=== PATIENT | female | born 1950 | race Caucasian/White ===

== ENCOUNTER 2017-08-17 13:00 | Inpatient (IN) | payer OTHER ==
[~2017-08-17] VITALS: Ht 172.7 cm; Wt 82.6 kg
[~2017-08-17 13:00] MED LIST: GABA-533 PO; VITA400C70 PO
[2017-08-17 14:41] VITALS: BP 140/63
[2017-08-17 15:03] LABS: BASOPHILS % (AUTO) 0.7 % (0.0-5.0); EOSINOPHILS % (AUTO) 2.6 % (0.0-8.0); HEMATOCRIT 43.2 % (36-48); LYMPHOCYTES % (AUTO) 20.8 % (21.0-51.0); MEAN CORPUSCULAR HEMOGLOBIN 34.1 pg (27.0-33.0); MEAN CORPUSCULAR HGB CONC 34.2 g/dL (32.0-36.0); MEAN CORPUSCULAR VOLUME 99.7 fL (79-99); NEUTROPHILS % (AUTO) 68.9 % (40.0-77.0); PLATELET COUNT (AUTO) 247 K/uL (130-400); RED BLOOD CELL COUNT(AUTO) 4.33 MIL/uL (4.00-5.50); RED CELL DISTRIBUTION WIDTH 13.6 % (11.0-15.5); WHITE BLOOD COUNT (AUTO) 12.9 K/uL (4.8-10.8)
[2017-08-17] MEDS ORDERED: VENL150C2 PO (15:10)
[2017-08-17] MEDS ORDERED: FEXO1TAB5 PO (15:10)
[2017-08-17] MEDS ORDERED: BUPR-93 PO (15:10)
[2017-08-17] MEDS ORDERED: ELTR25TA PO (15:10)
[2017-08-17] MEDS ORDERED: INOS500T PO ×2 (15:10)
[2017-08-17] MEDS ORDERED: METH500T PO (15:10)
[2017-08-17] MEDS ORDERED: TURM500C9 PO (15:10)
[2017-08-17] MEDS ORDERED: PRED5TAB PO (15:10)
[2017-08-17 15:12] LABS: INR 1.02 (0.85-1.15); PARTIAL THROMBOPLASTIN TIME 24.2 SEC (26.3-35.5); PROTHROMBIN TIME 10.7 SEC (9.6-11.6)
[2017-08-17 15:14] LABS: ALBUMIN 3.6 g/dL (3.5-5.0); BILIRUBIN,TOTAL 0.4 mg/dL (0.2-1.0); CREATININE 0.9 mg/dL (0.5-1.5); POTASSIUM 3.8 mmol/L (3.5-5.1); TOTAL PROTEIN, SERUM 7.6 g/dL (6.0-8.3)
[2017-08-17 15:21] LABS: HEMOGLOBIN A1C 10.2 % (4.0-6.0)
[2017-08-18] VITALS (34 sets, daily range): BP systolic 94–164; BP diastolic 41–100
[2017-08-18] MEDS: CEFUROXIME SODIUM 1.5 GM VIAL IVP SCH ×2 (06:00→11:20)
[2017-08-18] MEDS ORDERED: SODIUM CHLORIDE 0.9% 1000ML 1,000 ML IV ONE (09:08)
[2017-08-18] MEDS ORDERED: THROMBIN-JMI 5000 UNIT/VIAL TP ONE (10:52)
[2017-08-18] MEDS ORDERED: MIDAZOLAM HCL 1 MG/ML 2ML VIAL ONE ×2 (11:07→11:11)
[2017-08-18] MEDS ORDERED: OCTYL 2-CYANOACRYLATE 1 EACH TP ONE (11:10)
[2017-08-18] MEDS ORDERED: DEXAMETHASONE SOD PHOSPHATE 10MG/ML 1ML VIAL ONE (11:10)
[2017-08-18] MEDS ORDERED: LIDOCAINE PF 2% 5ML ABBOJECT ONE (11:10)
[2017-08-18] MEDS ORDERED: ONDANSETRON HCL 4 MG/2 ML VIAL ONE ×2 (11:10→16:17)
[2017-08-18] MEDS ORDERED: BACITRACIN 50,000 UNIT VIAL ONE (11:10)
[2017-08-18] MEDS ORDERED: GLYCOPYRROLATE 0.2 MG/ML 5 ML VIAL ONE (11:10)
[2017-08-18] MEDS ORDERED: PROPOFOL 10 MG/ML 20ML VIAL IV ONE (11:10)
[2017-08-18] MEDS ORDERED: FENTANYL CITRATE PF 50 MCG/1 ML 2ML VIAL ONE (11:11)
[2017-08-18] MEDS ORDERED: FENTANYL CITRATE PF 50 MCG/1 ML 5ML AMP IV ONE (11:33)
[2017-08-18] MEDS ORDERED: BUPIVACAINE/PF 0.5% 30ML VIAL ONE (13:45)
[2017-08-18] MEDS ORDERED: LABETALOL HCL 5 MG/ML 20ML VIAL IV ONE (14:50)
[2017-08-18] MEDS ORDERED: MORPHINE SULFATE 2 MG/ML 1ML SYG ONE (16:16)
[2017-08-18] MEDS ORDERED: CEFAZOLIN 2GM / 50 ML 50 ML IV SCH (16:30)
[2017-08-18] MEDS ORDERED: MAGNESIUM HYDROXIDE 30 ML/UDCUP PO PRN (16:30)
[2017-08-18] MEDS ORDERED: MORPHINE SULFATE 2 MG/ML 1ML SYG IVP PRN ×2 (16:30)
[2017-08-18] MEDS ORDERED: ACETAMINOPHEN 325 MG TAB PO PRN (16:30)
[2017-08-18] MEDS ORDERED: SODIUM CHLORIDE 0.9% 1000ML 1,000 ML IV SCH (16:30)
[2017-08-18] MEDS ORDERED: TRAMADOL HCL 50 MG TABLET PO PRN (16:30)
[2017-08-18 16:42] LABS: BASOPHILS % (AUTO) 0.3 % (0.0-5.0); EOSINOPHILS % (AUTO) 0.6 % (0.0-8.0); HEMATOCRIT 41.2 % (36-48); LYMPHOCYTES % (AUTO) 6.6 % (21.0-51.0); MEAN CORPUSCULAR HEMOGLOBIN 34.1 pg (27.0-33.0); MEAN CORPUSCULAR HGB CONC 34.4 g/dL (32.0-36.0); MONOCYTES % (AUTO) 4.5 % (3.0-13.0); PLATELET COUNT (AUTO) 256 K/uL (130-400); RED BLOOD CELL COUNT(AUTO) 4.16 MIL/uL (4.00-5.50); RED CELL DISTRIBUTION WIDTH 13.6 % (11.0-15.5); WHITE BLOOD COUNT (AUTO) 24.5 K/uL (4.8-10.8)
[2017-08-18] MEDS: CEFAZOLIN SODIUM 1 GM VIAL IVP SCH ×2 (16:43→23:36)
[2017-08-18 16:55] LABS: CREATININE 0.7 mg/dL (0.5-1.5); POTASSIUM 3.8 mmol/L (3.5-5.1)
[2017-08-18 16:59] LABS: MAGNESIUM 1.4 mg/dL (1.80-2.40); PHOSPHORUS 4.3 mg/dL (2.5-4.9)
[2017-08-18] MEDS: TRAMADOL HCL 50 MG TABLET PO PRN (18:41)
[2017-08-18] MEDS ORDERED: POTASSIUM CHLORIDE 10% ELIXIR 20 MEQ/15 ML UDCUP PO PRN (18:45)
[2017-08-18] MEDS ORDERED: MAGNESIUM 2GM PREMIX 50ML 50 ML IV PRN (18:45)
[2017-08-18] MEDS ORDERED: LIDOCAINE HCL-MPF 1% 2ML VIAL IVP PRN (18:45)
[2017-08-18] MEDS ORDERED: POTASSIUM CHLORIDE 20MEQ/100ML 100 ML IV PRN (18:45)
[2017-08-18] MEDS ORDERED: MAGNESIUM 2GM PREMIX 50ML 50 ML IV ONE (18:47)
[2017-08-18] MEDS: MORPHINE SULFATE 2 MG/ML 1ML SYG IVP PRN (20:20)
[2017-08-18] MEDS: PROMACTA PO SCH (21:00)
[2017-08-18] MEDS: BUPROPION HCL 150 MG TABLET.SA PO SCH (21:00)
[2017-08-18] MEDS: LORATADINE/PSEUDOEPHED 5/120 MG 1 EACH TAB.SR.12H PO SCH (21:00)
[2017-08-18] MEDS: GABAPENTIN 100 MG CAPSULE PO SCH (21:01)
[2017-08-18] MEDS: POTASSIUM CHLORIDE 20 MEQ ERTAB PO PRN (21:01)
[2017-08-18] MEDS ORDERED: MORPHINE SULFATE 4 MG/1ML SYG IM PRN (23:15)
[2017-08-18] MEDS: ONDANSETRON HCL 4 MG/2 ML VIAL IVP PRN (23:31)
[2017-08-18] MEDS ORDERED: DEXTROSE 50%-WATER 50 ML DISP.SYRIN IV PRN (23:45)
[2017-08-18] MEDS ORDERED: GLUCAGON 1MG KIT 1 MG ML IM PRN (23:45)
[2017-08-19] VITALS (22 sets, daily range): BP systolic 93–136; BP diastolic 35–81
[2017-08-19] MEDS: MORPHINE SULFATE 4 MG/1ML SYG IV PRN ×2 (00:09→03:43)
[2017-08-19] MEDS ORDERED: MORPHINE SULFATE 4 MG/1ML SYG IV PRN (03:15)
[2017-08-19 05:48] LABS: BASOPHILS % (AUTO) 0.6 % (0.0-5.0); EOSINOPHILS % (AUTO) 0.3 % (0.0-8.0); HEMATOCRIT 44.9 % (36-48); LYMPHOCYTES % (AUTO) 6.7 % (21.0-51.0); MEAN CORPUSCULAR HEMOGLOBIN 33.7 pg (27.0-33.0); MEAN CORPUSCULAR VOLUME 98.9 fL (79-99); MONOCYTES % (AUTO) 5.3 % (3.0-13.0); NEUTROPHILS % (AUTO) 87.1 % (40.0-77.0); PLATELET COUNT (AUTO) 313 K/uL (130-400); RED BLOOD CELL COUNT(AUTO) 4.54 MIL/uL (4.00-5.50); RED CELL DISTRIBUTION WIDTH 13.7 % (11.0-15.5); WHITE BLOOD COUNT (AUTO) 23.9 K/uL (4.8-10.8)
[2017-08-19 06:07] LABS: CREATININE 0.8 mg/dL (0.5-1.5); MAGNESIUM 2.2 mg/dL (1.80-2.40); PHOSPHORUS 4.1 mg/dL (2.5-4.9); POTASSIUM 4.9 mmol/L (3.5-5.1)
[2017-08-19] MEDS: MORPHINE SULFATE 2 MG/ML 1ML SYG IVP PRN (06:19)
[2017-08-19] MEDS: INSULIN HUMULIN R 100 UNIT/ML 3ML SQ SCH ×4 (06:48→21:03)
[2017-08-19] MEDS: ONDANSETRON HCL 4 MG/2 ML VIAL IVP PRN (07:43)
[2017-08-19] MEDS ORDERED: KETOROLAC TROMETHAMINE 15MG/ML ONE (07:58)
[2017-08-19] MEDS: KETOROLAC TROMETHAMINE 15MG/ML IV SCH ×3 (08:00→20:37)
[2017-08-19] MEDS: VENLAFAXINE HCL XR 37.5 MG CAP PO SCH (08:48)
[2017-08-19] MEDS: LORATADINE/PSEUDOEPHED 5/120 MG 1 EACH TAB.SR.12H PO SCH ×2 (08:49→20:36)
[2017-08-19] MEDS: PREDNISONE 5 MG TABLET PO SCH (08:49)
[2017-08-19] MEDS: GABAPENTIN 100 MG CAPSULE PO SCH ×2 (08:49→20:37)
[2017-08-19] MEDS: BUPROPION HCL 150 MG TABLET.SA PO SCH ×2 (08:49→18:47)
[2017-08-19] MEDS: PANTOPRAZOLE 40 MG/VIAL IVP SCH (09:00)
[2017-08-19] MEDS: PROMACTA PO SCH (18:52)
[2017-08-20] VITALS (24 sets, daily range): BP systolic 98–142; BP diastolic 41–69
[2017-08-20] MEDS: KETOROLAC TROMETHAMINE 15MG/ML IV SCH ×4 (02:03→19:34)
[2017-08-20 04:15] LABS: HEMATOCRIT 40.1 % (36-48); MEAN CORPUSCULAR HEMOGLOBIN 34.1 pg (27.0-33.0); MEAN CORPUSCULAR HGB CONC 34.3 g/dL (32.0-36.0); MEAN CORPUSCULAR VOLUME 99.3 fL (79-99); PLATELET COUNT (AUTO) 260 K/uL (130-400); RED BLOOD CELL COUNT(AUTO) 4.04 MIL/uL (4.00-5.50); RED CELL DISTRIBUTION WIDTH 13.7 % (11.0-15.5); WHITE BLOOD COUNT (AUTO) 18.3 K/uL (4.8-10.8)
[2017-08-20 04:35] LABS: CREATININE 0.7 mg/dL (0.5-1.5); POTASSIUM 3.9 mmol/L (3.5-5.1)
[2017-08-20] MEDS: INSULIN HUMULIN R 100 UNIT/ML 3ML SQ SCH ×4 (06:36→21:38)
[2017-08-20] MEDS: LORATADINE/PSEUDOEPHED 5/120 MG 1 EACH TAB.SR.12H PO SCH ×2 (07:36→21:10)
[2017-08-20] MEDS: BUPROPION HCL 150 MG TABLET.SA PO SCH ×2 (07:36→21:10)
[2017-08-20] MEDS: PANTOPRAZOLE 40 MG/VIAL IVP SCH (07:36)
[2017-08-20] MEDS: PREDNISONE 5 MG TABLET PO SCH (07:37)
[2017-08-20] MEDS: VENLAFAXINE HCL XR 37.5 MG CAP PO SCH (08:11)
[2017-08-20] MEDS: ONDANSETRON HCL 4 MG/2 ML VIAL IVP PRN (08:26)
[2017-08-20] MEDS: PANTOPRAZOLE SODIUM 40 MG TABLET.DR PO SCH (08:31)
[2017-08-20] MEDS: GABAPENTIN 300 MG CAPSULE PO SCH ×3 (08:34→21:11)
[2017-08-20] MEDS: HYDROCODONE/ACETAMINOPHEN 7.5/325 MG TAB PO PRN ×2 (09:23→22:43)
[2017-08-20] MEDS: FUROSEMIDE 20 MG TABLET PO SCH (16:49)
[2017-08-20] MEDS: PROMACTA PO SCH (17:45)
[2017-08-20] MEDS: IPRATROPIUM/ALBUTEROL SULFATE 3 ML SOLUTION IH SCH ×2 (17:54→23:21)
[2017-08-20] MEDS: DOXYCYCLINE HYCLATE 100 MG TABLET PO SCH (21:10)
[2017-08-21] VITALS (12 sets, daily range): BP systolic 84–131; BP diastolic 47–68
[2017-08-21] MEDS: KETOROLAC TROMETHAMINE 15MG/ML IV SCH ×3 (02:22→13:39)
[2017-08-21] MEDS: FUROSEMIDE 20 MG TABLET PO SCH ×2 (04:26→16:31)
[2017-08-21] MEDS: INSULIN HUMULIN R 100 UNIT/ML 3ML SQ SCH ×4 (06:16→21:00)
[2017-08-21] MEDS: PANTOPRAZOLE SODIUM 40 MG TABLET.DR PO SCH (06:16)
[2017-08-21] MEDS: IPRATROPIUM/ALBUTEROL SULFATE 3 ML SOLUTION IH SCH ×4 (06:16→23:23)
[2017-08-21 06:27] LABS: BASOPHILS % (AUTO) 1.3 % (0.0-5.0); EOSINOPHILS % (AUTO) 1.5 % (0.0-8.0); HEMATOCRIT 36.7 % (36-48); LYMPHOCYTES % (AUTO) 12.2 % (21.0-51.0); MEAN CORPUSCULAR HEMOGLOBIN 33.6 pg (27.0-33.0); MEAN CORPUSCULAR HGB CONC 33.8 g/dL (32.0-36.0); MEAN CORPUSCULAR VOLUME 99.4 fL (79-99); MONOCYTES % (AUTO) 6.4 % (3.0-13.0); NEUTROPHILS % (AUTO) 78.6 % (40.0-77.0); PLATELET COUNT (AUTO) 219 K/uL (130-400); RED CELL DISTRIBUTION WIDTH 13.9 % (11.0-15.5)
[2017-08-21 06:47] LABS: CREATININE 0.8 mg/dL (0.5-1.5); MAGNESIUM 1.7 mg/dL (1.80-2.40); PHOSPHORUS 2.9 mg/dL (2.5-4.9); POTASSIUM 3.7 mmol/L (3.5-5.1)
[2017-08-21] MEDS: PREDNISONE 5 MG TABLET PO SCH (07:33)
[2017-08-21] MEDS: BUPROPION HCL 150 MG TABLET.SA PO SCH ×2 (07:33→20:39)
[2017-08-21] MEDS: LORATADINE/PSEUDOEPHED 5/120 MG 1 EACH TAB.SR.12H PO SCH (07:33)
[2017-08-21] MEDS: GABAPENTIN 300 MG CAPSULE PO SCH ×3 (07:33→20:39)
[2017-08-21] MEDS: DOXYCYCLINE HYCLATE 100 MG TABLET PO SCH ×2 (07:38→20:39)
[2017-08-21] MEDS: VENLAFAXINE HCL XR 37.5 MG CAP PO SCH (07:51)
[2017-08-21] MEDS: HYDROCODONE/ACETAMINOPHEN 7.5/325 MG TAB PO PRN (13:43)
[2017-08-21] MEDS: POTASSIUM CHLORIDE 20 MEQ ERTAB PO PRN (16:33)
[2017-08-21] MEDS: PROMACTA PO SCH (16:35)
[2017-08-22] MEDS: KETOROLAC TROMETHAMINE 15MG/ML IV SCH ×5 (02:26→20:19)
[2017-08-22] MEDS: FUROSEMIDE 20 MG TABLET PO SCH ×2 (02:40→17:32)
[2017-08-22 03:05] VITALS: BP 110/40
[2017-08-22 04:09] LABS: BASOPHILS % (AUTO) 0.5 % (0.0-5.0); EOSINOPHILS % (AUTO) 2.2 % (0.0-8.0); HEMATOCRIT 35.5 % (36-48); LYMPHOCYTES % (AUTO) 11.8 % (21.0-51.0); MEAN CORPUSCULAR HEMOGLOBIN 34.6 pg (27.0-33.0); MEAN CORPUSCULAR HGB CONC 34.9 g/dL (32.0-36.0); MEAN CORPUSCULAR VOLUME 99.1 fL (79-99); MONOCYTES % (AUTO) 7.3 % (3.0-13.0); NEUTROPHILS % (AUTO) 78.2 % (40.0-77.0); PLATELET COUNT (AUTO) 229 K/uL (130-400); RED BLOOD CELL COUNT(AUTO) 3.58 MIL/uL (4.00-5.50); RED CELL DISTRIBUTION WIDTH 13.5 % (11.0-15.5); WHITE BLOOD COUNT (AUTO) 12.8 K/uL (4.8-10.8)
[2017-08-22 04:18] LABS: CREATININE 0.8 mg/dL (0.5-1.5); POTASSIUM 4.1 mmol/L (3.5-5.1)
[2017-08-22] MEDS: PANTOPRAZOLE SODIUM 40 MG TABLET.DR PO SCH ×2 (05:44→09:00)
[2017-08-22] MEDS: LORATADINE/PSEUDOEPHED 5/120 MG 1 EACH TAB.SR.12H PO SCH ×3 (05:56→22:06)
[2017-08-22] MEDS: INSULIN HUMULIN R 100 UNIT/ML 3ML SQ SCH ×4 (06:04→22:12)
[2017-08-22] MEDS: IPRATROPIUM/ALBUTEROL SULFATE 3 ML SOLUTION IH SCH ×4 (06:33→23:21)
[2017-08-22 07:59] VITALS: BP 113/61
[2017-08-22] MEDS: BUPROPION HCL 150 MG TABLET.SA PO SCH ×2 (08:59→22:06)
[2017-08-22] MEDS: PREDNISONE 5 MG TABLET PO SCH (08:59)
[2017-08-22] MEDS: DOXYCYCLINE HYCLATE 100 MG TABLET PO SCH ×2 (09:00→22:06)
[2017-08-22] MEDS: VENLAFAXINE HCL XR 37.5 MG CAP PO SCH (09:00)
[2017-08-22] MEDS: GABAPENTIN 300 MG CAPSULE PO SCH ×3 (09:01→22:06)
[2017-08-22 11:46] VITALS: BP 109/54
[2017-08-22 17:19] VITALS: BP 125/64
[2017-08-22 19:16] VITALS: BP 109/56
[2017-08-22] MEDS: PROMACTA PO SCH (22:06)
[2017-08-22 23:30] VITALS: BP 116/61
[2017-08-23] MEDS: KETOROLAC TROMETHAMINE 15MG/ML IV SCH ×4 (02:21→21:38)
[2017-08-23 04:18] LABS: HEMATOCRIT 34.5 % (36-48); MEAN CORPUSCULAR HEMOGLOBIN 34.1 pg (27.0-33.0); MEAN CORPUSCULAR VOLUME 97.5 fL (79-99); PLATELET COUNT (AUTO) 256 K/uL (130-400); RED BLOOD CELL COUNT(AUTO) 3.54 MIL/uL (4.00-5.50); RED CELL DISTRIBUTION WIDTH 13.1 % (11.0-15.5); WHITE BLOOD COUNT (AUTO) 11.7 K/uL (4.8-10.8)
[2017-08-23 04:20] VITALS: BP 107/54
[2017-08-23] MEDS: FUROSEMIDE 20 MG TABLET PO SCH ×2 (04:27→16:32)
[2017-08-23 04:49] LABS: CREATININE 0.8 mg/dL (0.5-1.5); POTASSIUM 3.9 mmol/L (3.5-5.1)
[2017-08-23] MEDS: IPRATROPIUM/ALBUTEROL SULFATE 3 ML SOLUTION IH SCH ×4 (06:08→23:28)
[2017-08-23] MEDS: INSULIN HUMULIN R 100 UNIT/ML 3ML SQ SCH ×4 (06:28→21:35)
[2017-08-23 07:20] VITALS: BP 116/56
[2017-08-23] MEDS: VENLAFAXINE HCL XR 37.5 MG CAP PO SCH (09:13)
[2017-08-23] MEDS: DOXYCYCLINE HYCLATE 100 MG TABLET PO SCH ×2 (09:13→21:31)
[2017-08-23] MEDS: PREDNISONE 5 MG TABLET PO SCH (09:13)
[2017-08-23] MEDS: BUPROPION HCL 150 MG TABLET.SA PO SCH ×2 (09:13→21:31)
[2017-08-23] MEDS: LORATADINE/PSEUDOEPHED 5/120 MG 1 EACH TAB.SR.12H PO SCH ×2 (09:13→21:31)
[2017-08-23] MEDS: GABAPENTIN 300 MG CAPSULE PO SCH ×3 (09:13→21:31)
[2017-08-23 11:40] VITALS: BP 164/61
[2017-08-23 15:45] VITALS: BP 105/50
[2017-08-23] MEDS ORDERED: HYDROMORPHONE 1 MG/1 ML AMP IVP PRN (16:45)
[2017-08-23 20:00] VITALS: BP 115/56
[2017-08-23] MEDS: PROMACTA PO SCH (21:00)
[2017-08-23] MEDS: BACLOFEN 10 MG TABLET PO SCH (21:31)
[2017-08-24 00:26] VITALS: BP 122/56
[2017-08-24 03:55] LABS: HEMATOCRIT 37.8 % (36-48); MEAN CORPUSCULAR HEMOGLOBIN 34.3 pg (27.0-33.0); MEAN CORPUSCULAR HGB CONC 34.8 g/dL (32.0-36.0); MEAN CORPUSCULAR VOLUME 98.5 fL (79-99); PLATELET COUNT (AUTO) 344 K/uL (130-400); RED BLOOD CELL COUNT(AUTO) 3.84 MIL/uL (4.00-5.50); RED CELL DISTRIBUTION WIDTH 13.6 % (11.0-15.5); WHITE BLOOD COUNT (AUTO) 12.7 K/uL (4.8-10.8)
[2017-08-24 03:59] LABS: CREATININE 0.8 mg/dL (0.5-1.5); MAGNESIUM 1.5 mg/dL (1.80-2.40)
[2017-08-24 04:00] VITALS: BP 119/62
[2017-08-24 04:02] LABS: INR 1.04 (0.85-1.15); PARTIAL THROMBOPLASTIN TIME 25.7 SEC (26.3-35.5); PROTHROMBIN TIME 10.9 SEC (9.6-11.6)
[2017-08-24] MEDS: IPRATROPIUM/ALBUTEROL SULFATE 3 ML SOLUTION IH SCH ×7 (05:59→23:32)
[2017-08-24] MEDS: PANTOPRAZOLE SODIUM 40 MG TABLET.DR PO SCH (06:47)
[2017-08-24] MEDS: FUROSEMIDE 20 MG TABLET PO SCH ×2 (06:47→17:06)
[2017-08-24] MEDS: INSULIN HUMULIN R 100 UNIT/ML 3ML SQ SCH ×4 (06:50→20:55)
[2017-08-24] MEDS: KETOROLAC TROMETHAMINE 15MG/ML IV SCH (06:57)
[2017-08-24 08:00] VITALS: BP 113/51
[2017-08-24] MEDS: BACLOFEN 10 MG TABLET PO SCH ×3 (09:15→20:51)
[2017-08-24] MEDS: DOXYCYCLINE HYCLATE 100 MG TABLET PO SCH ×2 (09:15→20:51)
[2017-08-24] MEDS: LORATADINE/PSEUDOEPHED 5/120 MG 1 EACH TAB.SR.12H PO SCH ×2 (09:15→20:51)
[2017-08-24] MEDS: VENLAFAXINE HCL XR 37.5 MG CAP PO SCH (09:15)
[2017-08-24] MEDS: GABAPENTIN 300 MG CAPSULE PO SCH ×3 (09:15→20:51)
[2017-08-24] MEDS: PREDNISONE 5 MG TABLET PO SCH (09:16)
[2017-08-24] MEDS: BUPROPION HCL 150 MG TABLET.SA PO SCH ×2 (09:16→20:51)
[2017-08-24] MEDS: FLUCONAZOLE 100 MG TAB PO SCH (09:16)
[2017-08-24 12:00] VITALS: BP 105/52
[2017-08-24] MEDS: ACETAMINOPHEN-CODEINE 300/30MG TAB PO PRN (14:39)
[2017-08-24 16:00] VITALS: BP 104/49
[2017-08-24 19:43] VITALS: BP 120/57
[2017-08-24] MEDS: GUAIFENESIN 600 MG TABLET.ER PO SCH (20:51)
[2017-08-24] MEDS: PROMACTA PO SCH (20:56)
[2017-08-25] VITALS: BP 111/66
[2017-08-25 04:00] VITALS: BP 115/53
[2017-08-25 04:46] LABS: HEMATOCRIT 36.5 % (36-48); MEAN CORPUSCULAR HEMOGLOBIN 33.6 pg (27.0-33.0); MEAN CORPUSCULAR HGB CONC 34.2 g/dL (32.0-36.0); MEAN CORPUSCULAR VOLUME 98.2 fL (79-99); PLATELET COUNT (AUTO) 336 K/uL (130-400); RED BLOOD CELL COUNT(AUTO) 3.71 MIL/uL (4.00-5.50); RED CELL DISTRIBUTION WIDTH 13.2 % (11.0-15.5); WHITE BLOOD COUNT (AUTO) 12.8 K/uL (4.8-10.8)
[2017-08-25 05:04] LABS: CREATININE 0.7 mg/dL (0.5-1.5); MAGNESIUM 1.7 mg/dL (1.80-2.40); PHOSPHORUS 3.7 mg/dL (2.5-4.9); POTASSIUM 3.6 mmol/L (3.5-5.1)
[2017-08-25] MEDS: PANTOPRAZOLE SODIUM 40 MG TABLET.DR PO SCH (05:53)
[2017-08-25] MEDS: FUROSEMIDE 20 MG TABLET PO SCH ×2 (05:54→16:20)
[2017-08-25] MEDS: POTASSIUM CHLORIDE 20 MEQ ERTAB PO PRN (05:56)
[2017-08-25] MEDS: INSULIN HUMULIN R 100 UNIT/ML 3ML SQ SCH ×3 (05:57→16:58)
[2017-08-25] MEDS: IPRATROPIUM/ALBUTEROL SULFATE 3 ML SOLUTION IH SCH ×2 (06:10→11:19)
[2017-08-25 07:22] VITALS: BP 113/56
[2017-08-25] MEDS: BUPROPION HCL 150 MG TABLET.SA PO SCH (07:28)
[2017-08-25] MEDS: GUAIFENESIN 600 MG TABLET.ER PO SCH (07:28)
[2017-08-25] MEDS: DOXYCYCLINE HYCLATE 100 MG TABLET PO SCH (07:28)
[2017-08-25] MEDS: GABAPENTIN 300 MG CAPSULE PO SCH ×2 (07:28→13:10)
[2017-08-25] MEDS: FLUCONAZOLE 100 MG TAB PO SCH (07:28)
[2017-08-25] MEDS: BACLOFEN 10 MG TABLET PO SCH ×2 (07:28→13:09)
[2017-08-25] MEDS: TRAMADOL HCL 50 MG TABLET PO PRN (07:29)
[2017-08-25] MEDS ORDERED: ENOXAPARIN SODIUM 30 MG/0.3 ML SQ SCH (09:00)
[2017-08-25] MEDS: LORATADINE/PSEUDOEPHED 5/120 MG 1 EACH TAB.SR.12H PO SCH (09:35)
[2017-08-25] MEDS: VENLAFAXINE HCL XR 37.5 MG CAP PO SCH (09:36)
[2017-08-25] MEDS: ACETAMINOPHEN-CODEINE 300/30MG TAB PO PRN (09:39)
[2017-08-25 10:55] VITALS: BP 103/57
[2017-08-25] MEDS ORDERED: MAGNESIUM 2GM PREMIX 50ML 50 ML IV PRN (12:45)
[2017-08-25] MEDS: HYDROCODONE/ACETAMINOPHEN 7.5/325 MG TAB PO PRN (13:29)
[2017-08-25 16:25] VITALS: BP 121/56
[2017-08-26] MEDS ORDERED: FLUCONAZOLE 100 MG TAB PO SCH (09:00)
== END 2017-08-25 18:00 | DRG 163 ==
LOC: EDSTATUS 13:00 → DAHIP 08-18 09:05 → 2CH 08-18 15:40 → 2DH 08-21 18:39
PROVIDERS: ADMIT Internal Medicine; ATTEND Internal Medicine
PROC: 0BTF0ZZ Resection of Right Lower Lung Lobe, Open Approach (ICD-10-PCS; principal; 2017-08-18 11:04)
PROC: 5A09357 Assistance with Respiratory Ventilation, Less than 24 Consecutive Hours, Continuous Positive Airway Pressure (ICD-10-PCS; 2017-08-20)
PROC: 5A09357 Assistance with Respiratory Ventilation, Less than 24 Consecutive Hours, Continuous Positive Airway Pressure (ICD-10-PCS; 2017-08-21)
DX: C34.31 Malignant neoplasm of lower lobe, right bronchus or lung (principal); J86.0 Pyothorax with fistula; D69.3 Immune thrombocytopenic purpura; J90 Pleural effusion, not elsewhere classified; J44.1 Chronic obstructive pulmonary disease with (acute) exacerbation; D62 Acute posthemorrhagic anemia; J93.82 Other air leak; J93.9 Pneumothorax, unspecified; J98.11 Atelectasis; T79.7XXA Traumatic subcutaneous emphysema, initial encounter; D72.829 Elevated white blood cell count, unspecified; M19.90 Unspecified osteoarthritis, unspecified site; E66.01 Morbid (severe) obesity due to excess calories; F17.200 Nicotine dependence, unspecified, uncomplicated; F32.9 Major depressive disorder, single episode, unspecified; G89.4 Chronic pain syndrome; M79.7 Fibromyalgia; Z68.27 Body mass index [BMI] 27.0-27.9, adult; Z90.710 Acquired absence of both cervix and uterus; Z88.8 Allergy status to other drugs, medicaments and biological substances
CPT/HCPCS: 36415; 71045; 71046; 80048; 80053; 82948; 83036; 83735; 84100; 85025; 85027; 85610; 85730; 86850; 86900; 86901; 86922; 88305; 88331; 93005; 94640; 94660; 94664; 94667; 94668; 97039; A4218; A4344; A7048; C1729; C9113; J0690; J0697; J1100; J1650; J1815; J1885; J2001; J2250; J2270; J2405; J2704; J3010; J3475; J3490; J7030; J7512

== ENCOUNTER → 2022-08-05 | Outpatient (CLI) | payer OTHER ==
[~2022-08-05] MED LIST changes: +AEC81 PO; +ALEN70TA80 PO; +AZIT500T4 PO; +BACL10TA PO; +BETA1TAB20 PO; +BUPR150T3 PO; +ESOM40CA54 PO; -GABA-533 PO; +IPRA3AMP24 IH; +LACT10SO9 PO; +LIDOCAINE HCL 1% 20 ML VIAL ONE; +NAPR-1023 PO; +ONDA-104 PO; +PREG150C PO; +TRAM50TA4 PO; +TRAZ-187 PO; -VITA400C70 PO
[2022-08-05 13:33] LABS: BODY FLUID RBC 379 /cu. mm.; BODY FLUID WBC 72 /cu. mm.
[2022-08-05 14:28] LABS: APPEARANCE BODY FLUID SLIGHTLY CLOUDY (CLEAR); COLOR,BODY FLUID YELLOW (LT YELLOW); SPECIMENTYPE,BODY FLUID ASCITES; TOTAL VOLUME,BODY FLUID 6000 mL
[2022-08-05 14:41] LABS: BF LYMPHOCYTE 24 %
== END | disposition home or self-care (01) ==
LOC: RAH 10:04
PROVIDERS: ATTEND Internal Medicine
DX: R18.8 Other ascites (principal); K74.69 Other cirrhosis of liver; J44.9 Chronic obstructive pulmonary disease, unspecified; E11.43 Type 2 diabetes mellitus with diabetic autonomic (poly)neuropathy; M79.7 Fibromyalgia; E66.9 Obesity, unspecified; F17.200 Nicotine dependence, unspecified, uncomplicated; G47.00 Insomnia, unspecified; Z88.8 Allergy status to other drugs, medicaments and biological substances; Z88.6 Allergy status to analgesic agent; Z88.3 Allergy status to other anti-infective agents; Z90.2 Acquired absence of lung [part of]; Z68.20 Body mass index [BMI] 20.0-20.9, adult
CPT/HCPCS: 49083; 89051; 87071; 87205; C1729; 96365